=== PATIENT | female | born 1985 | race Caucasian/White ===

== ENCOUNTER → 2016-10-14 | Outpatient (CLI) | payer BC ==
--- NOTE | 2016-10-14 13:55 | US ---
EXAMINATION TYPE: US pelvic complete DATE OF EXAM: 10/14/2016 1:25 PM COMPARISON: NONE CLINICAL HISTORY: pelvic pain x 5 days with nausea today, and is 3 weeks post transabdominal partial hysterectomy/ patient states still has ovaries. TECHNIQUE: Transabdominal (TA) Fuentes scale, color Doppler, spectral Doppler imaging performed. Date of LMP: NA EXAM MEASUREMENTS: Uterus: surgically removed Endometrial Stripe: surgically removed Right Ovary: 7.4 x 6.0 x 4.6cm Left Ovary: 3.4 x 2.5 x 1.9cm FINDINGS: Vascular waveforms noted to the ovaries. 1. Uterus: surgically absent 2. Endometrium: surgically absent 3. Right Ovary: enlarged with large (minimally complex) cyst = 4.8 x 4.8 x 3.9cm; arterial and venou s PW Doppler and color flow is present 4. Left Ovary: wnl, small follicles, arterial and venous PW Doppler and color flow is present 5. Bilateral Adnexa: free fluid is noted posterior to enlarged right ovary, area = 1.8 x 3.4 x 3.8cm 6. Posterior cul-de-sac: see above IMPRESSION: Cystic focus associated with the right ovary is not simple cystic, consider hemorrhagic c yst, follow-up suggested. Normal Values: Uterine Length: < 10cm Endometrium: Proliferative (Day 6 ? 14): 4 ? 6mm Secretory (Day 15 ? 28): 7 ? 14mm Post Menopausal (and not symptomatic): up to 8mm Post Menopausal (with vaginal bleeding): upper limits <5mm Post Menopausal with HRT: upper limits 8 - 15mm Post Menopausal with tamoxifen: < 6mm (although 50% of those receiving tamoxifen have been reported t o have thickness >8mm)
[2016-10-14 14:32] LABS: Appearance,Urine Clear (Clear); Bilirubin,Urine Negative (Negative); Glucose,Urine (UA) Negative (Negative); Ketones,Urine Negative (Negative); Leukocyte Esterase,Urine Negative (Negative); Nitrite,Urine Negative (Negative); Protein,Urine Negative (Negative); Specific Gravity,Urine 1.005 (1.001-1.035); UA Billing (MACRO vs. MICRO) CHEM; Urobilinogen,Urine <2.0 mg/dL (<2.0)
== END | disposition home or self-care (01) ==
LOC: RADUSWWP 12:59
PROVIDERS: ATTEND Obstetrics & Gynecology
DX: N83.9 Noninflammatory disorder of ovary, fallopian tube and broad ligament, unspecified (principal); R30.0 Dysuria; R10.2 Pelvic and perineal pain
CPT/HCPCS: 76856; 81003; 87086; 93975

== ENCOUNTER → 2016-11-13 | Outpatient (CLI) | payer BC ==
--- NOTE | 2016-11-13 11:39 | US ---
EXAMINATION TYPE: US pelvic complete DATE OF EXAM: 11/13/2016 9:16 AM COMPARISON: on PACS CLINICAL HISTORY: 30-year-old female, previous Ovarian Cyst N83.20. Partial hysterectomy 09/2016, fol low-up right ovarian cyst TECHNIQUE: Multiple transabdominal sonographic images of the pelvis were obtained. FINDINGS: Uterus: Surgically absent Right Ovary: 4.4 x 2.9 x 2.2 cm for a volume of 13.9 mL. There is an elongated 3.5 x 2.4 x 1.1 cm c ystic structure containing some low-level internal echoes probably debris. Previously, this was much larger and measured 4.8 x 4.8 x 3.9 cm. Left Ovary: 3.5 x 2.4 x 1.5 cm for a volume of 6.7 mL. Minimal cul-de-sac free fluid is present. No evident adnexal abnormality. IMPRESSION: 1. Status post hysterectomy. 2. The right ovarian lesion shows interval decrease in size now measuring 3.5 x 2.4 x 1.1 cm versus 4 .8 x 4.8 x 3.9 cm, previously. Findings may represent a slowly involuting hemorrhagic cyst. Additiona l 6-8 week follow-up can be considered. 3. Trace pelvic free fluid.
== END | disposition home or self-care (01) ==
LOC: RADUSWWP 09:02
PROVIDERS: ATTEND Obstetrics & Gynecology
DX: N83.8 Other noninflammatory disorders of ovary, fallopian tube and broad ligament (principal); Z90.710 Acquired absence of both cervix and uterus
CPT/HCPCS: 76856

== ENCOUNTER → 2017-02-05 | Outpatient (CLI) | payer BC ==
[2017-02-05 11:49] LABS: Follicle Stimulating Hormone 3.6 mIU/mL; Prolactin 9.1 ng/mL (3.0-18.6)
== END | disposition home or self-care (01) ==
LOC: LABWHC1 09:59
PROVIDERS: ATTEND Internal Medicine Endocrinology, Diabetes & Metabolism
DX: R53.83 Other fatigue (principal)
CPT/HCPCS: 36415; 82533; 82670; 83001; 83002; 84146